=== PATIENT | female | born 1935 | race Caucasian/White ===

== ENCOUNTER → 2020-03-27 | Outpatient (CLI) | payer MEDICARE ==
[~2020-03-27] MED LIST: ALDACTONE25 MG PO; ASPIRIN EC81 MG PO; ATIVAN0.5 MG PO; CIPRO500 MG PO; CLOBETASOL EMU100 GM TP; COLCHICINE0.6 MG PO; EFFEXOR 25 MG T25 MG PO; FISH OIL 1,0001 EACH PO; KENALOG OINT 0.15 GM EXT; LEVOTHYROXINE75 MCG PO; METOPROLOL TART25 MG PO; NORVASC5 MG PO; PHENERGAN 12.12.5 M1 PO; PLAVIX 75 MG TA75 MG PO; PROTONIX40 MG PO; TRADJENTA5 MG PO; ZANTAC 150 MG150 MG PO; ZOFRAN ODT 4 MG4 MG PO; ZYLOPRIM 100 M100 MG PO
== END ==
LOC: CT 09:49
DX: I71.4 Abdominal aortic aneurysm, without rupture (principal); I72.3 Aneurysm of iliac artery
CPT/HCPCS: 36415; 80048; Q9967

== ENCOUNTER 2020-05-24 13:16 | Emergency (ER) | payer MEDICARE ==
[~2020-05-24 13:16] MED LIST changes: -ZOFRAN ODT 4 MG4 MG PO
[2020-05-24 16:50] LABS: HEMOGLOBIN 12.4 gm/dl (12.3-15.3); RED BLOOD COUNT 3.75 M/UL (4.00-5.10)
[2020-05-24] MEDS ORDERED: ZOFRAN ODT 4 MG4 MG PO (19:38)
[2020-05-26 09:12] LABS: HBSAG SCREEN Negative (Negative); HEP A AB, IGM Negative (Negative); HEP B CORE AB, IGM Negative (Negative); HEP C VIRUS AB >11.0 (0.0-0.9)
== END 2020-05-24 22:08 | disposition home or self-care (01) ==
LOC: ER1 13:16
PROVIDERS: Physician Assistant
DX: R11.2 Nausea with vomiting, unspecified (principal); R79.89 Other specified abnormal findings of blood chemistry; I12.9 Hypertensive chronic kidney disease with stage 1 through stage 4 chronic kidney disease, or unspecified chronic kidney disease; E11.22 Type 2 diabetes mellitus with diabetic chronic kidney disease; N18.30 Chronic kidney disease, stage 3 unspecified; Z86.73 Personal history of transient ischemic attack (TIA), and cerebral infarction without residual deficits; Z95.1 Presence of aortocoronary bypass graft; Z88.0 Allergy status to penicillin; Z88.2 Allergy status to sulfonamides; Z88.8 Allergy status to other drugs, medicaments and biological substances
CPT/HCPCS: 80053; 80074; 80307; 85025; 85610; 93005; 99284; Q9965

== ENCOUNTER → 2020-06-05 | Outpatient (CLI) | payer MEDICARE ==
[~2020-06-05] MED LIST changes: +ZOFRAN ODT 4 MG4 MG PO
[2020-06-07 08:14] LABS: ALPHA-1-ANTITRYPSIN, SERUM 233 mg/dL (101-187)
[2020-06-07 12:14] LABS: MITOCHONDRIAL (M2) ANTIBODY 28.3 Units (0.0-20.0)
[2020-06-08 17:11] LABS: HOMOGENEOUS PATTERN >1:1280 (.)
== END ==
LOC: LAB 16:47
PROVIDERS: Internal Medicine Gastroenterology
DX: K83.1 Obstruction of bile duct (principal); B17.9 Acute viral hepatitis, unspecified
CPT/HCPCS: 36415; 80076; 82103; 82728; 83540; 83550; 86038

== ENCOUNTER → 2020-06-11 | Outpatient (CLI) | payer MEDICARE | LOC: MRI 16:08 | DX: K83.1 Obstruction of bile duct (principal); N28.1 Cyst of kidney, acquired | CPT/HCPCS: 74181 ==

== ENCOUNTER → 2020-06-21 | Outpatient (CLI) | payer MEDICARE ==
[2020-06-22 15:14] LABS: LIVER-KIDNEY MICROSOMAL AB 1.1 Units (0.0-20.0)
[2020-06-22 21:09] LABS: HCV LOG10 1.301 (.); HEPATITIS C QUANTITATION 20 IU/mL (.)
== END ==
LOC: LAB 12:54
PROVIDERS: Internal Medicine Gastroenterology
DX: B17.9 Acute viral hepatitis, unspecified (principal); B18.2 Chronic viral hepatitis C; R74.8 Abnormal levels of other serum enzymes
CPT/HCPCS: 36415; 80076; 82784; 83516; 85610; 86376; 87521; 87522

== ENCOUNTER → 2020-09-04 | Outpatient (CLI) | payer MEDICARE ==
[~2020-09-04] MED LIST changes: +ACETAMINOPHEN-1 EAC1 PO; +BUSPIRONE HCL5 MG PO; +DAILY VITAMIN1 EAC2 PO; +ISOSORBIDE MONO60 MG PO; +JANUVIA25 MG PO; -LEVOTHYROXINE75 MCG PO; +LIORESAL TAB 1010 MG PO; +PREDNISONE2.5 MG PO; +SYNTHROID100 MCG PO; +VITAMIN B-121000 MC3 PO
[2020-09-05 07:11] LABS: HBSAG SCREEN Negative (Negative); HEP B CORE AB, TOT Negative (Negative); RHEUMATOID ARTHRITIS FACTOR <10.0 IU/mL (0.0-13.9)
[2020-09-06 16:12] LABS: HCV AB >11.0 (0.0-0.9); HEPATITIS C QUANTITATION HCV Not Detected IU/mL (.)
[2020-09-07 16:12] LABS: QUANTIFERON MITOGEN VALUE >10.00 IU/mL (.); QUANTIFERON NIL VALUE 0.04 IU/mL (.); QUANTIFERON TB1 AG VALUE 0.04 IU/mL (.); QUANTIFERON TB2 AG VALUE 0.05 IU/mL (.); QUANTIFERON-TB GOLD PLUS Negative (Negative)
== END ==
LOC: LAB 12:03
PROVIDERS: Nurse Practitioner Family
DX: Z11.59 Encounter for screening for other viral diseases (principal); M25.50 Pain in unspecified joint; D89.9 Disorder involving the immune mechanism, unspecified; R76.8 Other specified abnormal immunological findings in serum
CPT/HCPCS: 36415; 73130; 82550; 83520; 85652; 86140; 86200; 86431; 86704; 86803; 87340

== ENCOUNTER → 2020-10-03 | Outpatient (CLI) | payer MEDICARE | LOC: EXRD 09:57 | DX: M25.552 Pain in left hip (principal) | CPT/HCPCS: 73502 ==

== ENCOUNTER 2020-11-06 00:09 | Inpatient (IN) | payer MEDICARE, MEDICAID ==
[~2020-11-06] VITALS: Ht 167.6 cm; Wt 80.3 kg
[~2020-11-06 00:09] MED LIST changes: -ACETAMINOPHEN-1 EAC1 PO; -BUSPIRONE HCL5 MG PO; -DAILY VITAMIN1 EAC2 PO; -ISOSORBIDE MONO60 MG PO; -JANUVIA25 MG PO; -LIORESAL TAB 1010 MG PO; -METOPROLOL TART25 MG PO; -PREDNISONE2.5 MG PO; -SYNTHROID100 MCG PO; -VITAMIN B-121000 MC3 PO
[2020-11-06 01:57] LABS: HEMOGLOBIN 14.8 gm/dl (12.3-15.3); RED BLOOD COUNT 4.61 M/UL (4.00-5.10); WHITE BLOOD COUNT 5.4 K/UL (4.5-11.0)
[2020-11-06] MEDS ORDERED: METOPROLOL TART25 MG PO (08:15)
[2020-11-06] MEDS ORDERED: SYNTHROID100 MCG PO (08:17)
[2020-11-06] MEDS ORDERED: VITAMIN B-121000 MC3 PO (09:26)
[2020-11-06] MEDS ORDERED: PREDNISONE2.5 MG PO (09:27)
[2020-11-06] MEDS ORDERED: BUSPIRONE HCL5 MG PO (09:27)
[2020-11-06] MEDS ORDERED: ISOSORBIDE MONO60 MG PO (09:27)
[2020-11-06] MEDS ORDERED: JANUVIA25 MG PO (09:28)
[2020-11-06] MEDS ORDERED: ACETAMINOPHEN-1 EAC1 PO (09:28)
[2020-11-06] MEDS ORDERED: DAILY VITAMIN1 EAC2 PO (09:29)
[2020-11-06] MEDS ORDERED: LIORESAL TAB 1010 MG PO (09:29)
[2020-11-07 06:47] LABS: HEMOGLOBIN 14.2 gm/dl (12.3-15.3); RED BLOOD COUNT 4.38 M/UL (4.00-5.10)
[2020-11-07 06:56] LABS: WHITE BLOOD COUNT 7.3 K/UL (4.5-11.0)
[2020-11-08 06:49] LABS: HEMOGLOBIN 14.1 gm/dl (12.3-15.3); RED BLOOD COUNT 4.32 M/UL (4.00-5.10); WHITE BLOOD COUNT 8.7 K/UL (4.5-11.0)
--- NOTE | 2020-11-08 15:25 | NUR ---
PATIENT GOT AN ULTRASOUND GUIDED IV THIS AM. IV HAS BEEN VERY POSITIONAL, UNABLE TO FULLY RUN FLUIDS THROUGH IT WITH IT STOPPING CONSTANTLY.HAVE BEEN WAITING ON ON-CALL SURGEON TO PUT IN CENTRAL LINE. PICC NURSE CAME UP TO TRY TO GET ANOTHER ULTRASOUND GUIDED IV, UNSUCCESSFUL X 3 TIMES. UNABLE TO GET PICC OR MIDLINE DUE TO GFR. DR PIPER HAS AGREED TO COME UP AND GET CENTRAL LINE. NO FLUIDS ARE ABLE TO BE RAN AT THIS TIME.
--- NOTE | 2020-11-12 01:00 | NUR ---
Respiratory therapist Vero notified me to come to patient's room that the patient "did not look good." Upon entering the room, the patient was diaphoretic. Patient's oxygen saturation was 77% and respiratory maxed her out on her Airvo, so her oxygen saturation improved to the mid 90's. Whenever we tried to arouse the patient, she did not respond. JALOUSI[employer] INSTALLER was called. Patient had an episode of vomiting. Patient's vital signs remained stable. Patient's blood glucose was 182. Patient had another episode of vomiting. Stat EKG showed that patient was in AFIB RVR. Dr Owens assessed patient and said that the best thing for the patient was to transfer her to ICU so she could be intubated since she was vomiting because there was a risk for aspiration. Son, Anselmo Powell, notified of patient's condition change.
[2020-11-12 01:35] LABS: HEMOGLOBIN 14.3 gm/dl (12.3-15.3); RED BLOOD COUNT 4.43 M/UL (4.00-5.10); WHITE BLOOD COUNT 17.6 K/UL (4.5-11.0)
--- NOTE | 2020-11-12 02:56 | NUR ---
@0135 PT ARRIVED FROM M/S5, PT UNRESPONSIVE, GCS OF 3, MD IN ROOM @0141 PT INTUBATED SEE CHARTING FOR NOTES, OG TUBE PLACED TO INTERMITTENT SUCTION, AND THEN MARES CATHETER INSERTED, PT THEN TAKEN FOR STAT HEAD CT, MD AWARE OF IMAGES, FAMILY NOTIFIED OF FINDINGS
== END 2020-11-12 09:00 | disposition expired | DRG 208 ==
LOC: ER1 00:09 → CCU 03:56 → CDU 03:56 → M/S 19:48 → CCU 11-12 01:32
PROVIDERS: Internal Medicine; Physician Assistant; ADMIT Internal Medicine
PROC: XW033E5 Introduction of Remdesivir Anti-infective into Peripheral Vein, Percutaneous Approach, New Technology Group 5 (ICD-10-PCS; 2020-11-06)
PROC: 3E0333Z Introduction of Anti-inflammatory into Peripheral Vein, Percutaneous Approach (ICD-10-PCS; 2020-11-06)
PROC: 8E0ZXY6 Isolation (ICD-10-PCS; 2020-11-06)
PROC: 5A12012 Performance of Cardiac Output, Single, Manual (ICD-10-PCS; 2020-11-08)
PROC: 02HV33Z Insertion of Infusion Device into Superior Vena Cava, Percutaneous Approach (ICD-10-PCS; 2020-11-08)
PROC: B548ZZA Ultrasonography of Superior Vena Cava, Guidance (ICD-10-PCS; 2020-11-08)
PROC: 5A0945A Assistance with Respiratory Ventilation, 24-96 Consecutive Hours, High Flow/Velocity Cannula (ICD-10-PCS; 2020-11-08)
PROC: 5A1935Z Respiratory Ventilation, Less than 24 Consecutive Hours (ICD-10-PCS; principal; 2020-11-12)
PROC: 0BH17EZ Insertion of Endotracheal Airway into Trachea, Via Natural or Artificial Opening (ICD-10-PCS; 2020-11-12)
DX: U07.1 COVID-19 (principal); J12.82 Pneumonia due to coronavirus disease 2019; J80 Acute respiratory distress syndrome; I61.9 Nontraumatic intracerebral hemorrhage, unspecified; J44.0 Chronic obstructive pulmonary disease with (acute) lower respiratory infection; Z66 Do not resuscitate; Z51.5 Encounter for palliative care; I12.9 Hypertensive chronic kidney disease with stage 1 through stage 4 chronic kidney disease, or unspecified chronic kidney disease; R57.8 Other shock; N18.30 Chronic kidney disease, stage 3 unspecified; E11.22 Type 2 diabetes mellitus with diabetic chronic kidney disease; I51.3 Intracardiac thrombosis, not elsewhere classified; I44.0 Atrioventricular block, first degree; I71.4 Abdominal aortic aneurysm, without rupture; F17.210 Nicotine dependence, cigarettes, uncomplicated; I25.10 Atherosclerotic heart disease of native coronary artery without angina pectoris; Z95.1 Presence of aortocoronary bypass graft; Z90.49 Acquired absence of other specified parts of digestive tract; Z88.8 Allergy status to other drugs, medicaments and biological substances; I25.2 Old myocardial infarction; Z88.1 Allergy status to other antibiotic agents; Z88.0 Allergy status to penicillin; Z88.2 Allergy status to sulfonamides; Z86.73 Personal history of transient ischemic attack (TIA), and cerebral infarction without residual deficits
CPT/HCPCS: 31500; 36415; 36600; 70450; 71045; 80048; 80053; 82140; 82550; 82553; 82803; 82962; 83036; 83735; 83874; 83880; 84484; 85025; 85027; 86140; 93005; 94002; 94640; 94664; 94760; 99285; J0171; J1100; J1335; J1650; J2060; J2370; J2405; J2704; J7030; J7040; J7070; Q9965; U0002